=== PATIENT | male | born 1970 | race Caucasian/White ===

== ENCOUNTER 2022-09-23 17:55 | Emergency (ER) | payer BC ==
--- OUTSIDE RECORDS SUMMARY | 2022-09-23 18:23 | XMS REPORT | Continuity of Care Document ---
:1970 Author Organization [facility] t Address [address] [place] [address] Care Team Providers Name Role Phone JAN MO Attending Clinician Unavailable Nurse, Johan Pcp Assessment Clinic Attending Clinician Unavail able Jan Mo MD Attending Clinician Emma Pizarro MD Attending Clinician EMMA PIZARRO Attending Clinician Unavailable Payers Payer Name Policy Type Policy Number Effective Date Expiration Date [facility] - [id number] 2018 00:00:00 OUT OF STATE Problems This patient has no known problems. Allergies, Adverse Reactions, Alerts Allergy Allergy Status Severity Reaction(s) Onset Inactive Treating Comm ents Source Name Type Date Date Clinician NO KNOWN Drug Active [facility] Social History Social Habit Start Date Stop Date Quantity Comments Source Sex Assigned At Uni versity [facility] Smoking Status Start Date Stop Date Source [facility] Medications This patient has no known medications. Procedures This patient has no known procedures. Encounters Start End Encounter Admission Attending Care Care Encounter Source Date/Time Date/Time Type Type Clinicians Facility Department ID 2022-09-20 2022-09-20 Outpatient [facility] ROSALVA [id number] [place]eraj 10:35:49 10:35:49 [id number] F Wilfredo 2019-11-25 2019-11-25 Outpatient R [facility] [id number] Univers 10:00:00 10:00:00 JAN [facility] 2019-11-25 2019-11-25 Laboratory Nurse, Johan Pcp Assessment [facility] [id number] Univers 09:17:35 09:32:35 Only Chely Jan Santino PRIMARY [id number] [id number] [id number] [address] 2019-11-11 2019-11-11 [facility] [id number] Univers 00:00:00 00:00:00 Emma PRIMARY [id number] [id number] [id number] [address] 2019-11-10 2019-11-10 Laboratory Nurse, Gal Pcp Assessment C yasir [facility] [id number] Univers 12:43:51 12:58:51 Only Emma Pizarro PRIMARY [id number] [id number] [id number] [address] 2019-11-10 2019-11-10 Outpatient R JUAREZ [facility] [id number] [facility] 12:45:00 12:45:00 EMMA ity of [facility] Results This patient has no known results.
[2022-09-23 18:42] LABS: Absolute Lymphocytes (CBC) 0.2 K/uL (0.7-4.9); Hematocrit 48.9 % (39.6-49.0); Lymphocytes % 2.2 % (15.3-44.8); MCV 88.9 fL (80-100); MPV 9.2 fL (7.6-11.3)
[2022-09-23] MEDS ORDERED: METOCLOPRAMIDE 10 MG/2mL INJ ONE (18:44)
[2022-09-23] MEDS ORDERED: NA CHLORIDE 0.9% 50 ML ONE (18:44)
[2022-09-23] MEDS ORDERED: NA CHLORIDE 0.9% 1,000 ML ONE ×2 (18:44→21:37)
[2022-09-23] MEDS ORDERED: FAMOTIDINE 20 MG/2 ML VIAL IV ONE (18:44)
[2022-09-23 19:02] LABS: ALT/SGPT 44 U/L (16-61); Albumin 4.3 g/dL (3.4-5.0); Alkaline Phosphatase 75 U/L (45-117); BUN Blood Urea Nitrogen 19 mg/dL (7-18); Bicarbonate 21 mEq/L (21-32); Bilirubin Direct 0.2 mg/dL (0-0.2); Bilirubin Indirect, Calculated 0.6 mg/dL (0.2-0.8); Bilirubin Total 0.8 mg/dL (0.2-1.0); Glomerular Filtration Rate 76 ml/min (=/>90); Glucose Level 239 mg/dL (74-106); Lipase 36 U/L (13-75); NT PRO-BNP 29 pg/mL (<125); Protein, Total 8.5 g/dL (6.4-8.2); Sodium Level 134 mEq/L (136-145)
[2022-09-23 19:03] LABS: Protime INR 0.84
[2022-09-23 19:04] LABS: AST/SGOT 23 U/L (15-37); Potassium 4.4 mEq/L (3.5-5.1); Troponin High Sensitivity < 3.0 pg/mL (<58.9)
--- NOTE | 2022-09-23 19:14 | RAD REPORT ---
EXAM DESCRIPTION: RAD - Chest Single View - 09/23/2022 7:09 pm CLINICAL HISTORY: CHEST PAIN Chest pain. COMPARISON: <Comparisons> FINDINGS: Portable technique limits examination quality. The lungs are grossly clear. The heart is upper limit of normal in size. No displaced fractures. IMPRESSION: No acute intrathoracic process suspected.
[2022-09-23] MEDS ORDERED: ALBUTEROL 2.5 MG/3 ML NEB SOL ONE (19:34)
[2022-09-23] MEDS ORDERED: IPRATROPIUM BROM 0.5MG/2.5ML ONE (19:34)
[2022-09-23] MEDS ORDERED: FENTANYL CITR 100 MCG/2 ML ONE (19:35)
[2022-09-23 20:10] LABS: Barbiturates NEGATIVE (NEGATIVE); Benzodiazepines NEGATIVE (NEGATIVE); Cocaine NEGATIVE (NEGATIVE); METHAMPHETAM NEGATIVE (NEGATIVE); Methadone NEGATIVE (NEGATIVE); Opiates NEGATIVE (NEGATIVE); Phencyclidine NEGATIVE (NEGATIVE); THC Cannibis NEGATIVE (NEGATIVE)
--- NOTE | 2022-09-23 20:53 | RAD REPORT ---
EXAM DESCRIPTION: CT - Angio Aorta For Dissection - 09/23/2022 8:44 pm CLINICAL HISTORY: Chest pain radiating to the back. chest pain;Abd pain COMPARISON: No comparisons TECHNIQUE: CT angiography of the aorta was performed with MIPs. All CT scans are performed using dose optimization technique as appropriate and may include automated exposure control or mA/KV adjustment according to patient size. FINDINGS: A left aortic arch is present with normal branching pattern of the great vessels.No acute aortic finding is seen such as aneurysm, penetrating ulcer or dissection. The celiac axis, SMA, FERNIE and renal arteries are patent. No evidence of pulmonary embolism. The lungs are clear. Diffuse fatty liver.The spleen, pancreas, adrenal glands and kidneys are within normal limits for art erial phase imaging.18 mm right renal cyst. No bowel obstruction, free fluid or abscess.No pathologic enlarged lymphadenopathy identified. No fracture or worrisome bone lesion seen. IMPRESSION: No acute aortic finding is demonstrated. Diffuse fatty liver.
[2022-09-23] MEDS ORDERED: ONDANSETRON 4 MG/2 ML VIAL ONE (21:37)
--- NOTE | 2022-09-23 22:47 | EDPHYS ---
Physician Documentation [facility] Name: George Alcala Age: 52 yrs Sex: Male : 1970 Arrival Date: 09/23/2022 Time: 17:55 Bed 19 Private MD: ED Physician Mitchel Salgado HPI: 09/23 18:30 This 52 yrs old Male presents to ER via Wheelchair with complaints of Abdominal Pain, cp Vomiting. 18:30 The patient presents with abdominal pain. Onset: The symptoms/episode began/occurred cp this morning. 18:30 The symptoms do not radiate. cp 18:30 Associated signs and symptoms: Pertinent positives: nausea and vomiting, anorexia, cp chest pain, Pertinent negatives: constipation, diarrhea, fever, headache, vomiting blood. The symptoms are described as constant. Severity of pain: in the emergency department the pain is unchanged despite home interventions. Historical: - Allergies: 18:19 No Known Allergies; iw - Home Meds: 18:19 Jardiance oral [Active]; iw - PMHx: 18:19 Diabetes mellitus; iw - PSHx: 18:19 None; iw - Social history:: Smoking status: Patient reports use of chewing tobacco. ROS: 18:35 Constitutional: Positive for poor PO intake, Negative for body aches, chills, fever. cp 18:35 Eyes: Negative for injury, pain, redness, and discharge. cp 18:35 ENT: Negative for drainage from ear(s), ear pain, difficulty swallowing, difficulty handling secretions. 18:35 Cardiovascular: Positive for chest pain, Negative for edema, palpitations. 18:35 Respiratory: Negative for cough, shortness of breath, wheezing. 18:35 Abdomen/GI: Positive for abdominal pain, nausea and vomiting, anorexia, Negative for diarrhea, constipation, hematemesis. 18:35 Neuro: Negative for altered mental status, dizziness, headache, numbness, syncope, weakness. 18:35 All other systems are negative. Exam: 18:40 Constitutional: The patient appears in no acute distress, alert, awake, cp non-diaphoretic, non-toxic, well developed, well nourished. 18:40 Head/Face: Normocephalic, atraumatic. cp 18:40 Eyes: Periorbital structures: appear normal, Conjunctiva: normal, no exudate, no injection, Sclera: no appreciated abnormality, Lids and lashes: appear normal, bilaterally. 18:40 ENT: External ear(s): are unremarkable, Nose: is normal, Mouth: Lips: moist, Oral mucosa: pink and intact, moist, Posterior pharynx: is normal, airway is patent, no erythema, no exudate. 18:40 Neck: ROM/movement: is normal, is supple, without pain, no range of motions limitations. 18:40 Chest/axilla: Inspection: normal. 18:40 Cardiovascular: Rate: tachycardic, Rhythm: regular, Edema: is not appreciated, JVD: is not appreciated. 18:40 Respiratory: the patient does not display signs of respiratory distress, Respirations: normal, no use of accessory muscles, no retractions, labored breathing, is not present, Breath sounds: are clear throughout, no decreased breath sounds, no stridor, no wheezing. 18:40 Abdomen/GI: Inspection: abdomen appears normal, Bowel sounds: active, all quadrants, Palpation: soft, in all quadrants, moderate abdominal tenderness, in the epigastric area, right upper quadrant and left upper quadrant, rebound tenderness, is not appreciated, voluntary guarding, is elicited in the epigastric area. 18:40 Back: CVA tenderness, is absent. 18:40 Neuro: Orientation: to person, place \T\ time. Mentation: is normal, Motor: moves all fours, strength is normal, Sensation: is normal. 18:46 ECG was reviewed by the Attending Physician. cp Vital Signs: 18:18 BP 98 / 76; Pulse 106; Resp 16; Temp 97.1; Pulse Ox 97% on R/A; Weight 106.59 kg; iw Height 6 ft. 3 in. ; Pain 10/10; 18:50 BP 130 / 77; Pulse 101; Resp 16; Pulse Ox 92% on R/A; db 21:35 BP 127 / 94; Pulse 105; Resp 17 S; Pulse Ox 95% ; aa9 22:22 BP 122 / 93; Pulse 100; Resp 17 S; Pulse Ox 99% on R/A; aa9 23:00 BP 129 / 84; Pulse 99; Resp 17; Temp 98.5(O); Pulse Ox 99% on R/A; aa9 18:18 Body Mass Index 29.37 (106.59 kg, 190.5 cm) iw 18:18 Pain Scale: Adult iw MDM: 18:27 Patient medically screened. cp 19:00 Differential diagnosis: cholecystitis, Cholelithiasis, gastritis, pancreatitis, Peptic cp Ulcer Disease, Perf. Duodenal Ulcer, Perf. Gastric Ulcer, Pyelonephritis, Ureterolithiasis, sepsis. 22:45 Data reviewed: vital signs, nurses notes, lab test result(s), EKG, radiologic studies, cp CT scan, plain films. 22:45 Consideration of Admission/Observation Escalation of care including cp admission/observation considered. I considered the following discharge prescriptions or medication management in the emergency department Medications were administered in the Emergency Department. See MAR. Independent interpretation of the following test(s) in the Emergency Department EKG: See my EKG interpretation above X-Ray: My interpretation is chest image negative for focal pneumonia. Care significantly affected by the following chronic conditions: Diabetes. Counseling: I had a detailed discussion with the patient and/or guardian regarding: the historical points, exam findings, and any diagnostic results supporting the discharge/admit diagnosis, lab results, radiology results, to return to the emergency department if symptoms worsen or persist or if there are any questions or concerns that arise at home. Response to treatment: the patient's symptoms have markedly improved after treatment, and as a result, I will discharge patient. Special discussion: Based on the patient's Hx, exam, and Dx evaluation, there is no indication for emergent surgery or inpatient Tx. It is understood by the patient/guardian that if the Sx's persist or worsen they need to return immediately for re-evaluation. 09/23 18:15 Order name: Basic Metabolic Panel; Complete Time: 19:20 cp 09/23 19:20 Interpretation: Normal except: NA 134; GLUC 239; BUN 19; GFR 76. cp 09/23 18:15 Order name: CBC with Diff; Complete Time: 19:20 cp 09/23 19:20 Interpretation: Normal except: WBC 11.10; RBC 5.50; MICHELLE% 92.1; LYM% 2.2; NEUT A 10.2; cp LYMA 0.2. 09/23 18:15 Order name: LFT's; Complete Time: 19:20 cp 09/23 19:21 Interpretation: Normal except: TP 8.5; GLOB 4.2; A/G 1.0. cp 05/15 18:15 Order name: Magnesium; Complete Time: 19:20 cp 05/15 18:15 Order name: NT PRO-BNP; Complete Time: 19:20 cp 05/15 18:15 Order name: PT-INR; Complete Time: 19:20 cp 05/15 18:15 Order name: Troponin HS; Complete Time: 19:20 cp 05/15 19:21 Interpretation: Reviewed. cp 05/15 18:15 Order name: Lipase; Complete Time: 19:20 cp 05/15 18:35 Order name: ETOH Level; Complete Time: 19:20 cp 05/15 18:35 Order name: UDS; Complete Time: 20:13 cp 05/15 19:23 Order name: D-Dimer; Complete Time: 20:13 cp 05/15 20:13 Interpretation: D-DIMER 675; Reviewed. cp / 19:23 Order name: LAB Add On cp / 19:23 Order name: COVID-19 SARS RT PCR; Complete Time: 22:47 cp /15 22:47 Interpretation: Reviewed. cp / 19:23 Order name: Influenza Screen (a \T\ B); Complete Time: 21:06 cp 05/15 21:06 Interpretation: Reviewed. cp /15 18:15 Order name: XRAY Chest (1 view); Complete Time: 19:20 cp 05/15 20:14 Order name: CT Aorta for Dissection; Complete Time: 21:06 cp 05/15 18:15 Order name: EKG; Complete Time: 18:16 cp 05/15 18:15 Order name: Cardiac monitoring; Complete Time: 18:48 cp 05/15 18:15 Order name: EKG - Nurse/Tech; Complete Time: 18:48 cp 05/15 18:15 Order name: IV Saline Lock; Complete Time: 18:48 cp 05/15 18:15 Order name: Labs collected and sent; Complete Time: 18:48 cp 05/15 18:15 Order name: O2 Per Protocol; Complete Time: 18:48 cp 05/15 18:15 Order name: O2 Sat Monitoring; Complete Time: 18:48 cp 05/15 21:53 Order name: PO challenge; Complete Time: 21:56 cp EC:46 Rate is 100 beats/min. Rhythm is regular. TN interval is normal. QRS interval is cp normal. QT interval is normal. T waves are Inverted in leads III, aVR. Interpreted by me. Reviewed by me. Administered Medications: 18:40 Drug: NS 0.9% IV 1000 ml Route: IV; Rate: 1 bolus; Site: right antecubital; db 18:40 Drug: metoCLOPramide IVP 10 mg Route: IVP; Site: right antecubital; db 18:40 Drug: Famotidine IVP 20 mg Route: IVP; Site: right antecubital; db 19:43 Drug: DuoNeb Nebulize (2.5 mg - 0.5 mg) 3 ml Route: Nebulizer; aa9 21:38 Follow up: Response: No adverse reaction aa9 19:43 Drug: fentaNYL (PF) IVP 25 mcg Route: IVP; Site: right antecubital; aa9 21:38 Follow up: Response: No adverse reaction aa9 21:38 Drug: NS 0.9% IV 1000 ml Route: IV; Rate: 1 bolus; Site: right antecubital; aa9 21:38 Drug: Ondansetron IVP 4 mg Route: IVP; Site: right antecubital; aa9 22:59 Follow up: Response: No adverse reaction aa9 Disposition: 09/24 11:12 Co-signature as Attending Physician, Mitchel ARNETT was immediately available on-site ms3 in the Emergency Department for consultation in the care of the patient. Disposition Summary: 09/23/22 22:46 Discharge Ordered Location: Home cp Problem: new cp Symptoms: have improved cp Condition: Stable cp Diagnosis - Chest pain, unspecified cp - Upper abdominal pain, unspecified cp - Nausea with vomiting, unspecified cp - Diabetes mellitus due to underlying condition with hyperglycemia cp Followup: cp - With: Private Physician - When: 1 - 2 days - Reason: Worsening of condition Discharge Instructions: - Discharge Summary Sheet cp - Abdominal Pain, Adult cp - Nonspecific Chest Pain, Adult cp - Hyperglycemia cp - Nausea and Vomiting, Adult cp - Blood Glucose Monitoring, Adult cp - Diabetes Mellitus and Nutrition, Adult cp - Aspirin and Your Heart cp Forms: - Medication Reconciliation Form cp - Thank You Letter cp - Antibiotic Education cp - Prescription Opioid Use cp Prescriptions: - Pepcid 20 mg Oral Tablet - take 1 tablet by ORAL route every 12 hours for 10 days; 20 tablet; Refills: 0, cp Product Selection Permitted - Zofran 4 mg Oral Tablet - take 1 tablet by ORAL route every 12 hours As needed; 20 tablet; Refills: 0, cp Product Selection Permitted Signatures: Dispatcher [employer] Sima Arrieta RN RN iw Ace Byrne PA PA cp Sims, Marcus, DO REN ms3 Sara Cross RN RN aa9 Sadia Tsang RN RN db Corrections: (The following items were deleted from the chart) 09/23 18:20 18:19 PMHx: None; sonia scott
--- NOTE | 2022-09-23 22:47 | ER ---
Nurse's Notes [facility] Name: George Alcala Age: 52 yrs Sex: Male : 1970 Arrival Date: 09/23/2022 Time: 17:55 Bed 19 Private MD: Diagnosis: Chest pain, unspecified;Upper abdominal pain, unspecified;Nausea with vomiting, unspecified;Diabetes mellitus due to underlying condition with hyperglycemia Presentation: 09/23 18:18 Chief complaint: Patient states: abd pain, n/v/d since this morning. Coronavirus iw screen: Client presents with at least one sign or symptom that may indicate coronavirus-19. Ebola Screen: Patient negative for fever greater than or equal to 101.5 degrees Fahrenheit, and additional compatible Ebola Virus Disease symptoms Patient denies exposure to infectious person. Patient denies travel to an Ebola-affected area in the 21 days before illness onset. No symptoms or risks identified at this time. Initial Sepsis Screen: Does the patient meet any 2 criteria? No. Patient's initial sepsis screen is negative. Does the patient have a suspected source of infection? No. Patient's initial sepsis screen is negative. Risk Assessment: Do you want to hurt yourself or someone else? Patient reports no desire to harm self or others. Onset of symptoms was September 23, 2022. 18:18 Method Of Arrival: Wheelchair iw 18:18 Acuity: KEV 3 iw Historical: - Allergies: 18:19 No Known Allergies; iw - Home Meds: 18:19 Jardiance oral [Active]; iw - PMHx: 18:19 Diabetes mellitus; iw - PSHx: 18:19 None; iw - Social history:: Smoking status: Patient reports use of chewing tobacco. Screenin:56 Abuse screen: Denies threats or abuse. Denies injuries from another. Nutritional aa9 screening: No deficits noted. Tuberculosis screening: No symptoms or risk factors identified. Assessment: 18:30 Reassessment: patient placed on O2 NC 2L . Patient O2 dropped to 88% on RA to 91% Room db Air. notified provider. 18:40 Reassessment: Patient appears in no apparent distress at this time. Patient and/or db family updated on plan of care and expected duration. Pain level reassessed. Patient is alert, oriented x 3, equal unlabored respirations, skin warm/dry/pink. General: Appears in no apparent distress. comfortable, Behavior is calm, cooperative. Pain: Complains of pain in abdomen. Neuro: Level of Consciousness is awake, alert, obeys commands, Oriented to person, place, time, situation. GI: Bowel sounds present X 4 quads. Abd is soft X 4 quads. 19:58 Reassessment: Patient appears in no apparent distress at this time. Patient and/or aa9 family updated on plan of care and expected duration. Pain level reassessed. Patient is alert, oriented x 3, equal unlabored respirations, skin warm/dry/pink. Pain: Complains of pain in chest. 21:34 Reassessment: Patient appears in no apparent distress at this time. Patient and/or aa9 family updated on plan of care and expected duration. Pain level reassessed. Patient is alert, oriented x 3, equal unlabored respirations, skin warm/dry/pink. report "a little" nausea. 22:59 Reassessment: Patient appears in no apparent distress at this time. Patient and/or aa9 family updated on plan of care and expected duration. Pain level reassessed. Patient is alert, oriented x 3, equal unlabored respirations, skin warm/dry/pink. Patient denies pain at this time. General: Behavior is. Vital Signs: 18:18 BP 98 / 76; Pulse 106; Resp 16; Temp 97.1; Pulse Ox 97% on R/A; Weight 106.59 kg; iw Height 6 ft. 3 in. ; Pain 10/10; 18:50 BP 130 / 77; Pulse 101; Resp 16; Pulse Ox 92% on R/A; db 21:35 BP 127 / 94; Pulse 105; Resp 17 S; Pulse Ox 95% ; aa9 22:22 BP 122 / 93; Pulse 100; Resp 17 S; Pulse Ox 99% on R/A; aa9 23:00 BP 129 / 84; Pulse 99; Resp 17; Temp 98.5(O); Pulse Ox 99% on R/A; aa9 18:18 Body Mass Index 29.37 (106.59 kg, 190.5 cm) iw 18:18 Pain Scale: Adult iw ED Course: 17:57 Patient arrived in ED. mr 18:08 Ace Byrne PA is PHCP. cp 18:08 Mitchel Salgado DO is Attending Physician. cp 18:19 Triage completed. iw 18:20 Arm band placed on. iw 18:22 Sadia Tsang, RN is Primary Nurse. db 18:32 Inserted saline lock: 20 gauge in right antecubital area, using aseptic technique. db Blood collected. 18:51 Patient has correct armband on for positive identification. Bed in low position. Call db light in reach. Side rails up X 1. 18:51 Oxygen administration via nasal cannula \\T\\ 2L/min Response to oxygen therapy: symptoms db improved. 19:11 XRAY Chest (1 view) In Process Unspecified. EDMS 20:46 CT Aorta for Dissection In Process Unspecified. EDMS 20:59 COVID-19 SARS RT PCR Sent. aa9 21:56 Diet: Patient given ice chips. Patient given water. Tolerated well. aa9 21:57 LAB Add On Sent. aa9 22:59 No provider procedures requiring assistance completed. IV discontinued, intact, aa9 bleeding controlled, No redness/swelling at site. Pressure dressing applied. Administered Medications: 18:40 Drug: NS 0.9% IV 1000 ml Route: IV; Rate: 1 bolus; Site: right antecubital; db 18:40 Drug: metoCLOPramide IVP 10 mg Route: IVP; Site: right antecubital; db 18:40 Drug: Famotidine IVP 20 mg Route: IVP; Site: right antecubital; db 19:43 Drug: DuoNeb Nebulize (2.5 mg - 0.5 mg) 3 ml Route: Nebulizer; aa9 21:38 Follow up: Response: No adverse reaction aa9 19:43 Drug: fentaNYL (PF) IVP 25 mcg Route: IVP; Site: right antecubital; aa9 21:38 Follow up: Response: No adverse reaction aa9 21:38 Drug: NS 0.9% IV 1000 ml Route: IV; Rate: 1 bolus; Site: right antecubital; aa9 21:38 Drug: Ondansetron IVP 4 mg Route: IVP; Site: right antecubital; aa9 22:59 Follow up: Response: No adverse reaction aa9 Medication: 22:59 VIS not applicable for this client. aa9 Outcome: 22:46 Discharge ordered by . cp 22:59 Discharged to home ambulatory, with family. aa9 22:59 Condition: stable 22:59 Discharge instructions given to patient, Instructed on discharge instructions, follow up and referral plans. medication usage, Demonstrated understanding of instructions, follow-up care, medications, Prescriptions given X 2. 23:00 Patient left the ED. aa9 Signatures: Dispatcher [employer] EDFL Beatrice Hunter Sima Sexton RN RN iw Ace Byrne PA PA cp Avalos, Aylin, RN RN aa9 Sadia Tsang RN RN db Corrections: (The following items were deleted from the chart) 18:20 18:19 PMHx: None; sonia scott
[2022-09-23 23:32] VITALS: O2SAT 99
[2022-09-23 23:34] VITALS: BP 129/84; TEMP 98.5
--- NOTE | 2022-09-24 07:47 | EKG ---
Test Date: 2022-09-23 Test Time: 18:39:57 Electric Organ Inspector And Repairer: RAFAEL MEASUREMENT RESULTS: Intervals: Rate: 100 NJ: 154 QRSD: 100 QT: 344 QTc: 443 [place]: P: 63 NJ: 154 QRS: 98 T: 25 INTERPRETIVE STATEMENTS: Normal sinus rhythm Normal ECG No previous ECG available for comparison Electronically Signed On 09-24-22 07:45:36 CDT by Silvino Avendano
== END 2022-09-23 23:00 | disposition home or self-care (01) ==
LOC: ER 17:55
DX: R10.9 Unspecified abdominal pain (principal); R07.9 Chest pain, unspecified; R11.2 Nausea with vomiting, unspecified; R73.9 Hyperglycemia, unspecified; E08.9 Diabetes mellitus due to underlying condition without complications; Z79.84 Long term (current) use of oral hypoglycemic drugs; F17.220 Nicotine dependence, chewing tobacco, uncomplicated; Z20.822 Contact with and (suspected) exposure to COVID-19
CPT/HCPCS: 93005; 85025; 80048; 36415; 83735; 85610; 85379; 80076; 84484; 83690; 83880; 80307; 87804 ×2; 71275; 74175; 71045; 94640; 96375; 96374; 99285; U0003; Q9967; J2765; J7613; J7644; J3010; J2405; J7030 ×2; G0480